=== PATIENT | female | born 1960 | race American Indian/Alaskan Native ===

== ENCOUNTER 2018-04-05 05:50 | Day surgery (SDC) | payer OTHER ==
[2018-04-05] MEDS ORDERED: ANCEF/STERILE WATER 2 GM/20 ML 2 GM/20 ML SYRINGE IV NR (06:00)
[2018-04-05] MEDS ORDERED: NACL 0.9% 1000 ML 1,000 ML IV SCH (06:00)
[2018-04-05 07:15] LABS: Basophils # (Auto) 0.1 K/mm3 (0.0-0.1); Eosinophils # (Auto) 0.2 K/mm3 (0.0-0.4); Eosinophils % (Auto) 2.5 % (0.0-4.3); Hematocrit 38.9 % (30.3-42.9); Hemoglobin 12.6 gm/dl (10.1-14.3); Lymphocytes # (Auto) 1.8 K/mm3 (1.2-5.4); Mean Corpuscular HGB Conc 33 % (30-34); Mean Corpuscular Hemoglobin 31 pg (28-32); Mean Corpuscular Volume 94 fl (79-97); Monocytes # (Auto) 0.8 K/mm3 (0.0-0.8); Monocytes % (Auto) 11.9 % (0.0-7.3); Platelet Count 244 K/mm3 (140-440); Red Blood Count 4.12 M/mm3 (3.65-5.03); Red Cell Distribution Width 14.8 % (13.2-15.2)
[2018-04-05 07:28] LABS: INR 0.9 (0.87-1.13); Partial Thromboplastin Time 27.3 Sec. (24.2-36.6)
[2018-04-05 07:31] LABS: BUN/Creatinine Ratio 23; Blood Urea Nitrogen 14 mg/dL (7-17); Calcium 8.8 mg/dL (8.4-10.2); Hemolysis Index 4
[2018-04-05] MEDS ORDERED: HEPARIN/NS 5000 UNIT/500ML(CATH LAB) 1,000 ML IR ONE (08:12)
[2018-04-05] MEDS ORDERED: HEPARIN 10,000 UNITS/10 ML ONE (08:12)
--- NOTE | 2018-04-05 08:15 | Short Stay Summary ---
Short Stay Documentation Date of service: 04/05/18 - History Principal diagnosis: compression of vein/venous hypertension Past Medical History: other (venous insufficiency) Past Surgical History: Other (prior EVLT) Social history: , lives with family - Allergies and Medications Current Medications: Allergies No Known Allergies Allergy (Unverified 04/05/18 05:51) Home Medications Medication Instructions Recorded Confirmed Last Taken Type Aspirin EC [Aspirin Enteric Coated 81 mg PO DAILY 04/05/18 04/05/18 03/31/18 History TAB] 81mg Dorzolamide-Timolol Eye Drops 1 drop INTRAOCULA HS 04/05/18 04/05/18 04/04/18 History 1 drop Latanoprost 0.005% 1 drop INTRAOCULA BID 04/05/18 04/05/18 04/05/18 03:00 History Losartan/Hydrochlorothiazide 1 tab PO DAILY 04/05/18 04/05/18 04/04/18 History [Losartan-Hctz 100-25 mg Tab] 1 tab Active Medications Cefazolin Sodium (Ancef/Sterile Water 2 Gm/20 Ml) 2 gm in 20 mls @ 80 mls/hr IV PREOP NR; Protocol Stop: 04/05/18 15:00 Sodium Chloride (Nacl 0.9% 1000 Ml) 1,000 mls @ 42 mls/hr IV DIRECT BROCK Last Admin: 04/05/18 07:51 Dose: 42 mls/hr - Physical exam General appearance: no acute distress Integumentary: no rash HEENT: Atraumatic Lungs: Normal air movement Breasts: deferred Heart: Regular rate Gastrointestinal: normal Female Genitourinary: deferred Rectal Exam: deferred Extremities: abnormal (ble swelling and bulging varicose veins) Neurological: Normal gait, Normal speech - Brief post op/procedure progress note Date of procedure: 04/05/18 Pre-op diagnosis: venous compression/venous hypertension Post-op diagnosis: same Procedure: BLE venogram, venoplasty and stent Anesthesia: local Surgeon: ESSENCE FERNANDEZ Estimated blood loss: minimal Pathology: none Condition: stable - Disposition Condition at discharge: Good Disposition: DC-01 TO HOME OR SELFCARE Short Stay Discharge Plan Activity: advance as tolerated Weight Bearing Status: Weight Bear as Tolerated Diet: regular Wound: keep clean and dry, per your surgeon's advice Follow up with: PRIMARY CARE, [Primary Care Provider] - 7 Days
[2018-04-05] MEDS: VERSED ONE ×4 (08:40→09:16)
[2018-04-05] MEDS: SUBLIMAZE ONE ×6 (08:40→09:16)
[2018-04-05] MEDS: XYLOCAINE 2% INFILTRATI ONE ×3 (08:42→08:50)
[2018-04-05] MEDS ORDERED: TORADOL ONE (09:05)
--- NOTE | 2018-04-05 09:34 | Operative Report ---
Operative Report Operative Report: Exam: Bilateral lower extremity venogram, venoplasty with stent placement Clinical indication: Patient with extrinsic compression of her common iliac veins and venous hypertension of her lower extremities Date: 04/05/2018 Procedure: Following an expiration of the risks, benefits and alternative; written informed consent was obtained. The patient was brought to the injury Suite and placed in supine position on the examination table. Initial ultrasound evaluation of her groin symptoms rated patent proximal femoral veins bilaterally. Her bilateral groins were prepped and draped in the usual sterile fashion. 1% lidocaine was used for anesthesia. Under ultrasound guidance, the proximal right femoral vein was cannulated with a 7 cm 18-gauge needle. A 0.03 bicarbonate R was spent centrally. The needle was removed and a 5 [place] sheath placed. Access to the left proximal femoral vein was obtained in a similar fashion and an additional [address] Contrast was injected through both she simultaneously which demonstrated 70-80% stenosis involving the origin of the left common iliac vein and 60-70% stenosis involving the proximal right common iliac vein. A decision was made to evaluate further with intravascular ultrasound. The sheaths were upsized to 10 [place] sheaths bilaterally over the guidewires and intravascular ultrasound catheter was advanced over the right guidewire however, due to a manufacturing defect, the intravascular ultrasound catheter would not advance over the guidewire. The address for ultrasound was therefore removed and returned to the casino assistant manager. A decision was made to treat these lesions. 18 mm x 90 mm wall stents were advanced both sheaths and deployed cover the lesions from the common iliac veins extending into the external iliac veins. The lesions however appeared to extend more proximally into the IVC and 18 x 16 mm wall stents were used to extend the stents bilaterally. The stents were seated using 16 mm balloons bilaterally and a 14 mm balloon involving the left common iliac vein at its origin area post venoplasty and stent placement imaging demonstrated reduction of the stenoses bilaterally to less than 10%. The catheters, guidewires and sheaths were removed bilaterally and compression dressings were placed bilaterally. The patient tolerated the procedure well. There were no immediate post procedure compensations. Conscious sedation was performed under the guidance of radiologic nursing. Continuous cardiopulmonary monitoring C Jenn. Impression: 1) Bilateral lower extremity venogram demonstrating 70 - 80% stenosis involving the left common iliac vein is 60-70% stenosis involving the proximal right common iliac vein. 2). Venoplasty with stent placement as described with residual less than 10% stenosis bilaterally.
[2018-04-05] MEDS ORDERED: NORCO 5/325 PO PRN (10:00)
[2018-04-05] MEDS ORDERED: MORPHINE IV NR (10:00)
[2018-04-05] MEDS ORDERED: ZOFRAN IV ONE (11:31)
[2018-04-05 13:53] VITALS: BP 167/86
== END 2018-04-05 14:30 | disposition home or self-care (01) ==
LOC: CATHLABREC 05:50
PROVIDERS: ATTEND Radiology Diagnostic Radiology
DX: I87.1 Compression of vein (principal); I83.813 Varicose veins of bilateral lower extremities with pain; H40.9 Unspecified glaucoma; I10 Essential (primary) hypertension; M19.90 Unspecified osteoarthritis, unspecified site; Z98.890 Other specified postprocedural states; Z79.899 Other long term (current) drug therapy; Z79.82 Long term (current) use of aspirin; Z83.511 Family history of glaucoma
CPT/HCPCS: 36415; 37238; 37239; 75820; 80048; 85025; 85610; 85730; 96374; 96375; 99156; 99157; C1725; C1751; C1769; C1876; C1894; J1644; J1885; J2250; J2270; J2405; J3010; J7030; 75827; Q9967